=== PATIENT | female | born 1995 | race Caucasian/White ===

== ENCOUNTER 2018-11-05 06:56 | Day surgery (SDC) | payer BC, OTHER ==
[2018-11-05] MEDS ORDERED: ceFAZolin 1 GM Vial IVPUSH ONE (07:00)
[2018-11-05] MEDS: Lactated Ringers 1,000 ML IV SCH (07:16)
[2018-11-05] MEDS: Albuterol 0.083% 2.5 MG/3 ML Neb Soln NEB ONE (08:56)
[2018-11-05] MEDS ORDERED: Propofol 200 MG/20 ML SDV ONE (09:18)
[2018-11-05] MEDS ORDERED: fentaNYL 100 MCG/2 ML SDV ONE (09:18)
[2018-11-05] MEDS ORDERED: Midazolam 1 MG/ML 2 ML SDV ONE (09:19)
[2018-11-05] MEDS ORDERED: Succinylcholine 200 MG/10 ML MDV ONE (09:21)
[2018-11-05] MEDS: Bupivacaine 0.25%/EPINEPHrine 1:200,000 30 ML SDV ONE (10:11)
[2018-11-05] MEDS ORDERED: Ondansetron 4 MG/2 ML SDV ONE (10:44)
[2018-11-05] MEDS ORDERED: Ketorolac 30 MG/ML SDV ONE (10:44)
[2018-11-05] MEDS: Promethazine Topical Gel 0.5 ML Syringe TOP PRN (11:48)
--- NOTE | 2018-11-05 11:55 | OR ---
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 POSTOPERATIVE DIAGNOSIS: Recurring pilonidal cyst abscesses with sinus tracts. PROCEDURE PROPOSED: Elliptical excision of pilonidal region. PROCEDURE DONE: Elliptical excision of pilonidal region. [employer] WOMAN: Blanka Ramirez. INDICATION: This is a 23-year-old female bothered with a lot of recurring episodes of infected pilonidal sinus tracts and cyst that required drainage and it is to the point where I felt she would benefit with more definitive surgical excision and she came in for elective surgery. TECHNIQUE: The patient was brought to the operative suite, given a general endotracheal anesthetic, and placed in the prone jackknife position. The intergluteal area and buttocks were sterilely prepped and draped. An ellipse was then marked with a skin marker to incorporate the visible sinus tracts in the gluteal crease as well as the scarred in pilonidal cyst that has been previously drained. This area was then locally anesthetized with 0.25% Marcaine with epinephrine. The skin incision was then made, and with cautery, dissection was taken down perpendicular to the underlying muscle fascia and presacral fascia. This ellipse of skin and subcutaneous tissue was then removed en bloc and submitted for pathologic examination. Hemostasis was obtained with cautery and the subcutaneous tissue was then undermined along the muscle fascia of the gluteus for about an inch to facilitate a primary closure. This was performed by reapproximating the subcutaneous tissue with interrupted 0 Vicryl sutures, and the skin was then closed with interrupted vertical mattress stitches of 3-0 Prolene. A sterile dressing was applied. There was minimal blood loss. She was awakened and taken to the recovery room in good condition. SCM: 11/05/2018 10:47:59 MODL: 11/05/2018 11:49:18 /[id number]
== END 2018-11-05 13:35 | disposition home or self-care (01) ==
LOC: VM.SDS 06:56
PROVIDERS: ATTEND Surgery
DX: L05.01 Pilonidal cyst with abscess (principal); L90.5 Scar conditions and fibrosis of skin; E10.8 Type 1 diabetes mellitus with unspecified complications; J45.20 Mild intermittent asthma, uncomplicated; R56.9 Unspecified convulsions; Z79.4 Long term (current) use of insulin; Z79.3 Long term (current) use of hormonal contraceptives; Z79.899 Other long term (current) drug therapy
CPT/HCPCS: 81025; 82962; A9270-GY; J1885; J2250; J2405; J2704; J3010; J7120; J7613-GY